=== PATIENT | male | born 1945 | race Caucasian/White ===

== ENCOUNTER 2020-11-18 12:04 | Outpatient (CLI) | payer MEDICARE, BC ==
--- NOTE | 2020-11-18 18:48 | XRAY Report ---
PROCEDURE: Ankle 3 View LT INDICATIONS: LEFT ANKLE SPRAIN TECHNIQUE: 3 views of the ankle were acquired. COMPARISON: None FINDINGS: Bones: No fractures or dislocations. Ankle mortise is normally aligned. No suspicious bony lesions . Soft tissues: No tibiotalar joint effusion. Achilles tendon appears normal. IMPRESSION: No evidence acute bony abnormality of the left ankle. Reviewed by: Brian Wang MD on 11/18/2020 5:46 PM ALEAH Approved by: Brian Wang MD on 11/18/2020 5:46 PM [email or web address] Station ID: [id number]
== END 2020-11-18 12:05 | disposition home or self-care (01) ==
LOC: DI.S 12:04
PROVIDERS: ATTEND Emergency Medicine
DX: S93.412A Sprain of calcaneofibular ligament of left ankle, initial encounter (principal)